=== PATIENT | female | born 1960 | race Caucasian/White ===

== ENCOUNTER 2017-11-15 08:03 | Emergency (ER) | payer BC ==
[~2017-11-15] VITALS: Ht 160 cm; Wt 64.1 kg
[~2017-11-15 08:03] MED LIST: ASPI-621 PO; ATEN25TA PO; IRBE75TA10 PO; LEVO75TA5 PO; PANT40TA3 PO; SIMV40TA3 PO
[2017-11-15 08:41] LABS: MICROSCOPIC AUTO
[2017-11-15] MEDS ORDERED: ATEN50TA41 PO (09:38)
[2017-11-15] MEDS ORDERED: MORPHINE SULFATE 4 MG/ML, 1ML ONE (09:52)
[2017-11-15] MEDS ORDERED: SODIUM CHLORIDE FLUSH 10ML SYR IVF ONE (10:00)
[2017-11-15] MEDS ORDERED: ONDANSETRON 2MG/ML, 2ML ONE (10:00)
[2017-11-15] MEDS ORDERED: ONDANSETRON 2MG/ML, 2ML IVPush ONE (10:00)
[2017-11-15] MEDS ORDERED: MORPHINE SULFATE 4 MG/ML, 1ML IVPush PRN (10:00)
[2017-11-15 10:11] LABS: BASOPHILS # (AUTO) 0.03 x10^3/uL (0-0.1); BASOPHILS % (AUTO) 1 % (0-1); EOSINOPHILS # (AUTO) 0.06 x10^3/uL (0-0.4); EOSINOPHILS % (AUTO) 1 % (1-7); LYMPHOCYTES # (AUTO) 1.94 x10^3/uL (1-3.4); LYMPHOCYTES % (AUTO) 32 % (22-44); MD NO; MEAN CORPUSCULAR HEMOGLOBIN 31.5 pg (27.0-34.8); MEAN CORPUSCULAR HGB CONC 33.9 g/dL (32.4-35.8); MEAN CORPUSCULAR VOLUME 92.9 fL (80-100); MEAN PLATELET VOLUME 7.4 fL (7.4-10.4); MONOCYTES # (AUTO) 0.39 x10^3/uL (0.2-0.8); MONOCYTES % (AUTO) 6 % (2-9); NEUTROPHILS # (AUTO) 3.68 x10^3/uL (1.8-6.8); NEUTROPHILS % (AUTO) 60 % (42-75); PLATELET COUNT 274 x10^3/uL (130-400)
[2017-11-15 10:39] LABS: ALBUMIN 4.1 g/dL (3.4-5.0); ANION GAP 5 mmol/L (5-15); CALCIUM 9.1 mg/dL (8.5-10.1); CHLORIDE 108 mmol/L (98-107)
[2017-11-15 10:44] LABS: ALANINE AMINOTRANSFERASE 29 U/L (12-78); ALKALINE PHOSPHATASE 67 U/L (45-117); BILIRUBIN,TOTAL 0.5 mg/dL (0.2-1.0); CREATININE 0.65 mg/dL (0.55-1.02); TOTAL PROTEIN 7.9 g/dL (6.4-8.2)
[2017-11-15] MEDS ORDERED: OMNIPAQUE 350 MG/ML, 100ML BOTTLE ONE (11:23)
[2017-11-15 12:28] VITALS: BP 113/53
== END 2017-11-15 12:29 | disposition home or self-care (01) ==
LOC: ED 10:43
DX: R10.31 Right lower quadrant pain (principal); E03.9 Hypothyroidism, unspecified; I10 Essential (primary) hypertension; E78.5 Hyperlipidemia, unspecified; Z88.1 Allergy status to other antibiotic agents
CPT/HCPCS: 36415; 74177; 80053; 81001; 85025; 96374; 96375; 99285; J2405; Q9967

== ENCOUNTER → 2017-12-26 | Outpatient (CLI) | payer BC ==
[~2017-12-26] MED LIST changes: +ATEN50TA41 PO
== END | disposition home or self-care (01) ==
LOC: CFH 09:38
PROVIDERS: ATTEND Internal Medicine Cardiovascular Disease
DX: Z12.31 Encounter for screening mammogram for malignant neoplasm of breast (principal); I35.1 Nonrheumatic aortic (valve) insufficiency; I10 Essential (primary) hypertension; E78.5 Hyperlipidemia, unspecified; E03.9 Hypothyroidism, unspecified; F41.9 Anxiety disorder, unspecified
CPT/HCPCS: 93306; 77067

== ENCOUNTER 2018-05-16 17:10 | Emergency (ER) | payer BC ==
[~2018-05-16] VITALS: Ht 160 cm; Wt 66.6 kg
[~2018-05-16 17:10] MED LIST changes: -ASPI-621 PO; +ASPI81TA45 PO
[2018-05-16 17:22] VITALS: BP 134/83
--- NOTE | 2018-05-16 17:57 | NUR ---
from lobby to room at this time.
[2018-05-16] MEDS ORDERED: FAMOTIDINE 20 MG TABLET ONE (18:17)
[2018-05-16] MEDS ORDERED: FAMOTIDINE 20 MG TABLET PO ONE (18:30)
== END 2018-05-16 18:52 | disposition home or self-care (01) ==
LOC: ED 18:20
DX: T78.1XXA Other adverse food reactions, not elsewhere classified, initial encounter (principal); E03.8 Other specified hypothyroidism; I10 Essential (primary) hypertension; E78.5 Hyperlipidemia, unspecified; F41.1 Generalized anxiety disorder; X58.XXXA Exposure to other specified factors, initial encounter
CPT/HCPCS: 99283; J7512

== ENCOUNTER 2018-12-07 10:09 | Outpatient (CLI) | payer BC | END 2018-12-07 23:59 | disposition home or self-care (01) | LOC: CFH 10:09 | PROVIDERS: ATTEND Obstetrics & Gynecology | DX: Z12.31 Encounter for screening mammogram for malignant neoplasm of breast (principal); Z80.3 Family history of malignant neoplasm of breast | CPT/HCPCS: 77067 ==

== ENCOUNTER 2018-12-18 09:50 | Outpatient (CLI) | payer BC | END 2018-12-18 23:59 | disposition home or self-care (01) | LOC: CVU 09:50 | PROVIDERS: ATTEND Internal Medicine Cardiovascular Disease | DX: I08.3 Combined rheumatic disorders of mitral, aortic and tricuspid valves (principal); I10 Essential (primary) hypertension; E78.5 Hyperlipidemia, unspecified | CPT/HCPCS: 93306 ==

== ENCOUNTER 2019-07-03 07:09 | Day surgery (SDC) | payer BC ==
[2019-07-02 10:51] LABS: ALANINE AMINOTRANSFERASE 37 U/L (12-78); ALBUMIN 4.4 g/dL (3.4-5.0); ANION GAP 9 mmol/L (5-15); CALCIUM 9.3 mg/dL (8.5-10.1); CHLORIDE 104 mmol/L (98-107); CREATININE 0.69 mg/dL (0.55-1.02)
[2019-07-02 10:53] LABS: ALKALINE PHOSPHATASE 76 U/L (45-117); BILIRUBIN,TOTAL 0.6 mg/dL (0.2-1.0); TOTAL PROTEIN 8.4 g/dL (6.4-8.2)
[~2019-07-03] VITALS: Ht 160 cm; Wt 63.6 kg
[~2019-07-03 07:09] MED LIST changes: +FAT FIGHTER PO; -IRBE75TA10 PO; +IRBE75TA6 PO; +LIDOCAINE 1%-EPI 1:100K, 20ML ONE; +LIOT5TAB11 PO; +ROPIvacaine/PF 0.5%, 30 ML ONE; +SIMV40TA20 PO; -SIMV40TA3 PO; +VENL37.511 PO; +[UNRECOGNIZED DRUG - OTHER] PO
[2019-07-03] MEDS ORDERED: ACETAMINOPHEN 500 MG TABLET PO ONE (07:30)
[2019-07-03] MEDS ORDERED: GABAPENTIN 300 MG CAPSULE PO ONE (07:30)
[2019-07-03] MEDS ORDERED: LACTATED RINGERS 1,000 ML IV SCH (07:32)
[2019-07-03 07:41] VITALS: BP 118/73
[2019-07-03] MEDS ORDERED: FENTANYL PF 100 MCG/2ML ONE ×2 (07:59→09:19)
[2019-07-03] MEDS ORDERED: MIDAZOLAM 1 MG/ML, 2ML ONE (07:59)
[2019-07-03] MEDS ORDERED: EPHEDRINE 50 MG/ML, 1ML ONE (08:32)
[2019-07-03] MEDS ORDERED: CEFAZOLIN 1,000 MG ONE (08:47)
[2019-07-03] MEDS ORDERED: PROPOFOL 10 MG/ML, 20ML ONE (08:47)
[2019-07-03] MEDS ORDERED: ONDANSETRON 2MG/ML, 2ML ONE (08:47)
[2019-07-03] MEDS ORDERED: DEXAMETHASONE 4 MG/ML, 1ML ONE (08:47)
[2019-07-03] MEDS ORDERED: KETOROLAC 30 MG/1 ML ONE (08:47)
[2019-07-03] MEDS ORDERED: HYDROmorphone 2 MG/ML, 1ML IVPush PRN (09:00)
[2019-07-03] MEDS ORDERED: PROMETHAZINE 25 MG/ML, 1ML IV PRN (09:00)
[2019-07-03] MEDS ORDERED: MEPERIDINE/PF 25MG/ML,1ML IVPush PRN (09:00)
[2019-07-03] MEDS ORDERED: MIDAZOLAM 1 MG/ML, 2ML IV PRN (09:00)
[2019-07-03] MEDS ORDERED: METOPROLOL 1 MG/ML, 5ML IV PRN (09:00)
[2019-07-03] MEDS ORDERED: ALBUTEROL/IPRATROPIUM 2.5MG/0.5MG, 3 ML NPPB PRN (09:00)
[2019-07-03] MEDS ORDERED: OXYcodone 5 MG/5 ML ORAL.SOL UDC ONE (09:19)
[2019-07-03] MEDS: OXYcodone 5 MG/5 ML ORAL.SOL UDC PO PRN ×2 (09:21→10:36)
[2019-07-03] MEDS: FENTANYL PF 100 MCG/2ML IV PRN ×4 (09:24→09:55)
== END 2019-07-03 13:25 | disposition home or self-care (01) ==
LOC: OUT 07:09 → EDSTATUS 16:00
PROVIDERS: ATTEND Orthopaedic Surgery
DX: S83.232A Complex tear of medial meniscus, current injury, left knee, initial encounter (principal); S83.282A Other tear of lateral meniscus, current injury, left knee, initial encounter; M22.42 Chondromalacia patellae, left knee; Z88.2 Allergy status to sulfonamides; Z87.891 Personal history of nicotine dependence; X58.XXXA Exposure to other specified factors, initial encounter; Y93.89 Activity, other specified; Y92.89 Other specified places as the place of occurrence of the external cause; Y99.8 Other external cause status
CPT/HCPCS: 29880; 36415; 80053; J0690; J1100; J1885; J2250; J2405; J2704; J2795; J3010; J3490; J7120

== ENCOUNTER 2019-12-02 06:45 | Outpatient (CLI) | payer BC ==
[~2019-12-02 06:45] MED LIST changes: -LIDOCAINE 1%-EPI 1:100K, 20ML ONE; -ROPIvacaine/PF 0.5%, 30 ML ONE
== END 2019-12-02 23:59 | disposition home or self-care (01) ==
LOC: CFH 06:45
PROVIDERS: ATTEND Internal Medicine Cardiovascular Disease
DX: I35.1 Nonrheumatic aortic (valve) insufficiency (principal); I10 Essential (primary) hypertension; E78.5 Hyperlipidemia, unspecified
CPT/HCPCS: 93306